=== PATIENT | male | born 1990 | race Caucasian/White ===

== ENCOUNTER 2020-06-01 03:16 | Emergency (ER) | payer OTHER, SELFPAY ==
[2020-06-01 03:13] VITALS: BP 140/104; PULSE 88; RESP 18; TEMP 36.5; O2SAT 98; BMI 28.7
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
--- NOTE | 2020-06-01 03:27 | PC.NURSE ---
MD present at bedside during triage.
[2020-06-01 03:45] VITALS: BP 142/95; PULSE 79; RESP 16; TEMP 36.6; O2SAT 99
== END 2020-06-01 03:53 | disposition home or self-care (01) ==
PROVIDERS: Emergency Provider Emergency Medicine
DX: S63.501A Unspecified sprain of right wrist, initial encounter (principal); V40.5XXA Car driver injured in collision with pedestrian or animal in traffic accident, initial encounter; Y92.413 State road as the place of occurrence of the external cause
CPT/HCPCS: 73090; 73100; 99282

== ENCOUNTER 2023-10-30 06:36 | Emergency (ER) | payer SELFPAY ==
[2023-10-30 06:39] VITALS: BP 147/99; PULSE 107; RESP 22; TEMP 36.8; O2SAT 95; BMI 27.8
--- NOTE | 2023-10-30 06:43 | XR_ITS ---
FINAL REPORT CLINICAL HISTORY: Right ankle pain COMPARISON: None FINDINGS: RIGHT ANKLE: Three views of the right ankle were obtained. There is no acute fracture or dislocation. There are small calcifications inferior to the medial and lateral malleolus favored to be chronic. The joint spaces and mortise are intact. There is no soft tissue abnormality. IMPRESSION: No definite acute bony abnormality. Reviewed, Interpreted and Dictated by Ankit De Leon III, MD Transcribed by Helen Murray Authenticated and [facility]
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
[2023-10-30] MEDS: IBUPROFEN 600 MG TABLET PO (07:05)
[2023-10-30 07:29] VITALS: BP 147/99; PULSE 107; RESP 22; TEMP 36.8; O2SAT 95
== END 2023-10-30 07:30 | disposition home or self-care (01) ==
PROVIDERS: Emergency Provider Emergency Medicine
DX: S93.401A Sprain of unspecified ligament of right ankle, initial encounter (principal); M25.571 Pain in right ankle and joints of right foot; X50.0XXA Overexertion from strenuous movement or load, initial encounter; Z87.891 Personal history of nicotine dependence
CPT/HCPCS: 73610; 99283

== ENCOUNTER 2024-04-11 23:51 | Emergency (ER) | payer SELFPAY ==
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
[2024-04-12] VITALS: BP 147/104; PULSE 80; RESP 18; TEMP 36.8; O2SAT 98; BMI 26.4
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
[2024-04-12] MEDS: IBUPROFEN 600 MG TABLET PO (00:15)
[2024-04-12 01:17] VITALS: BP 137/100; PULSE 88; RESP 18; TEMP 36.8; O2SAT 100
== END 2024-04-12 01:20 | disposition home or self-care (01) ==
PROVIDERS: Emergency Provider Emergency Medicine
DX: S69.91XA Unspecified injury of right wrist, hand and finger(s), initial encounter (principal); Y04.2XXA Assault by strike against or bumped into by another person, initial encounter; M79.641 Pain in right hand
CPT/HCPCS: 73130; 99283